=== PATIENT | male | born 1955 | race Hispanic/Latino ===

== ENCOUNTER → 2023-08-16 | Outpatient (REF) | payer MEDICARE ==
[~2023-08-16] MED LIST: ASPIR 8181 MG PO; CEPHALEXIN500 MG PO; CIPRO500 MG PO; DOXYCYCLINE HY100 MG PO; JANUMET XR 1001 EACH PO; LANTUS100 UNITS/ SQ; LISINOPRIL10 MG PO; PLAVIX75 MG PO; PRAVASTATIN SOD40 MG PO
== END ==
LOC: RAD 09:10
PROVIDERS: ATTEND Internal Medicine Infectious Disease
DX: E11.621 Type 2 diabetes mellitus with foot ulcer (principal); L97.519 Non-pressure chronic ulcer of other part of right foot with unspecified severity
CPT/HCPCS: 93306

== ENCOUNTER 2023-09-03 07:49 | Outpatient (RCR) | payer MEDICARE | END 2023-09-05 | LOC: WCC 07:49 | PROVIDERS: ATTEND Podiatrist Foot & Ankle Surgery | DX: E11.621 Type 2 diabetes mellitus with foot ulcer (principal); L97.518 Non-pressure chronic ulcer of other part of right foot with other specified severity | CPT/HCPCS: 83036 ==

== ENCOUNTER 2024-01-31 14:30 | Outpatient (RCR) | payer MEDICARE ==
[~2024-01-31 14:30] MED LIST changes: +ACARBOSE100 MG PO; +COLLAGENASE OINTMENT 30 GM TUBE ONE; +FLOMAX0.4 MG PO; +FLONASE ALLERG9.9 ML INH; +GLIPIZIDE ER5 MG PO; +LEVOTHYROXINE50 MCG PO; +LIPITOR10 MG PO; +METFORMIN HCL500 M2 PO; +MINERAL OIL/PETROLAT/GLYCERI 6OZ BTL ONE; +OFLOXACIN5 ML OT; +SOLIQUA 100 UNIT3 ML SC; +TRYPSIN/BALSAM PERU/CASTOR OIL ONE
== END 2024-02-04 ==
LOC: WCC 14:30
PROVIDERS: ATTEND Internal Medicine Infectious Disease
DX: E11.621 Type 2 diabetes mellitus with foot ulcer (principal); I96 Gangrene, not elsewhere classified; L97.518 Non-pressure chronic ulcer of other part of right foot with other specified severity; L97.418 Non-pressure chronic ulcer of right heel and midfoot with other specified severity; Z16.35 Resistance to multiple antimicrobial drugs; B96.4 Proteus (mirabilis) (morganii) as the cause of diseases classified elsewhere; B96.89 Other specified bacterial agents as the cause of diseases classified elsewhere
CPT/HCPCS: 11042 ×2; 36415 ×13; 82948 ×13; 97602 ×5; 97605 ×2; 99212 ×2; 99213 ×6; G0277 ×14

== ENCOUNTER 2024-03-20 13:21 | Outpatient (RCR) | payer MEDICARE ==
[~2024-03-20 13:21] MED LIST changes: -COLLAGENASE OINTMENT 30 GM TUBE ONE; -MINERAL OIL/PETROLAT/GLYCERI 6OZ BTL ONE; -TRYPSIN/BALSAM PERU/CASTOR OIL ONE
== END 2024-04-05 ==
LOC: WCC 13:21
PROVIDERS: ATTEND Podiatrist Foot & Ankle Surgery
DX: E11.621 Type 2 diabetes mellitus with foot ulcer (principal); I96 Gangrene, not elsewhere classified; L97.418 Non-pressure chronic ulcer of right heel and midfoot with other specified severity; I51.9 Heart disease, unspecified; E78.5 Hyperlipidemia, unspecified; I10 Essential (primary) hypertension; I48.91 Unspecified atrial fibrillation; N40.0 Benign prostatic hyperplasia without lower urinary tract symptoms